=== PATIENT | male | born 1980 | race Caucasian/White ===

== ENCOUNTER 2023-06-06 10:59 | Emergency (ER) | payer MEDICAID ==
[~2023-06-06] VITALS: Ht 185.4 cm; Wt 92.2 kg
[2023-06-06 11:29] VITALS: BP 129/84; PULSE 63; RESP 18; TEMP 98.3; O2SAT 97
[2023-06-06] MEDS ORDERED: TETanus/Pertussis (Acell)/Diphther VAC/PF (Tdap-Adult) 0.5ml syringe IMVAC ONE (12:30)
[2023-06-06] MEDS ORDERED: CEPH-585 PO (12:46)
== END 2023-06-06 12:53 | disposition home or self-care (01) ==
LOC: ER 11:01
DX: S91.331A Puncture wound without foreign body, right foot, initial encounter (principal); Z79.2 Long term (current) use of antibiotics; X58.XXXA Exposure to other specified factors, initial encounter; Y93.89 Activity, other specified; Y92.89 Other specified places as the place of occurrence of the external cause; Y99.8 Other external cause status
CPT/HCPCS: 90471; 90715; 99283

== ENCOUNTER 2023-07-17 14:15 | Emergency (ER) | payer MEDICAID ==
[~2023-07-17] VITALS: Ht 185.4 cm; Wt 113.6 kg
[~2023-07-17 14:15] MED LIST: CEPH-585 PO
[2023-07-17 16:17] VITALS: TEMP 98.9
[2023-07-17 22:21] VITALS: BP 120/82; PULSE 74; RESP 18; O2SAT 97
[2023-07-17] MEDS ORDERED: gabapentin 400mg capsule PO SCH (22:30)
[2023-07-17] MEDS ORDERED: gabapentin 100mg capsule PO ONE (22:30)
[2023-07-17 22:55] LABS: BASOPHILS % (AUTO) 0.3 % (0-1); EOSINOPHILS # (AUTO) 0.4 X10'3 (0-0.9); EOSINOPHILS % (AUTO) 4.6 % (0-6); HEMATOCRIT 41.6 % (42.0-52.0); HEMOGLOBIN 14.2 g/dl (14.0-17.9); LYMPHOCYTES # (AUTO) 1.5 X10'3 (1.1-4.8); LYMPHOCYTES % (AUTO) 16.1 % (21-51); MEAN CORPUSCULAR HEMOGLOBIN 30.3 PG (27.0-31.0); MEAN CORPUSCULAR VOLUME 89.1 FL (78-98); MEAN PLATELET VOLUME 8.1 FL (7.4-10.4); MONOCYTES % (AUTO) 11.3 % (2-12); NEUTROPHILS # (AUTO) 6.3 X10'3 (1.8-7.7); NEUTROPHILS % (AUTO) 67.7 % (42-75); PLATELET COUNT 273 X10'3 (140-440); RED BLOOD COUNT 4.67 X10'6 (4.70-6.10); RED CELL DISTRIBUTION WIDTH 13.7 % (11.5-14.5); WHITE BLOOD COUNT 9.3 X10'3 (4.5-11.0)
[2023-07-17 23:08] LABS: ALANINE AMINOTRANSFERASE 119 U/L (12-78); ALBUMIN 3.8 G/DL (3.4-5.0); ALKALINE PHOSPHATASE 82 IU/L (46-116); ANION GAP 8 (8-16); ASPARTATE AMINO TRANSFERASE 80 U/L (10-37); BILIRUBIN,TOTAL 1.5 MG/DL (0.1-1.0); BLOOD UREA NITROGEN 11 MG/DL (7-18); BUN/CREATININE RATIO 11.1 (10.0-20.0); CALCIUM 8.9 MG/DL (8.5-10.1); CHLORIDE 99 MMOL/L (99-107); CREATININE 0.99 MG/DL (0.60-1.10); GLUCOSE 111 MG/DL (70-104); SODIUM 136 MMOL/L (135-145); TOTAL CARBON DIOXIDE 28.8 MMOL/L (24-32); TOTAL PROTEIN 7.5 G/DL (6.4-8.2); eCRCL 108 ML/MIN; eGFR 82 ML/MIN
[2023-07-17 23:10] LABS: C-REACTIVE PROTEIN 3.06 MG/DL (0.0-0.5)
[2023-07-17 23:27] LABS: URIC ACID 6.7 MG/DL (3.5-7.2)
[2023-07-17] MEDS ORDERED: GABA-530 PO (23:39)
== END 2023-07-17 23:56 | disposition home or self-care (01) ==
LOC: ER 14:15
DX: G62.1 Alcoholic polyneuropathy (principal); K76.9 Liver disease, unspecified; F17.200 Nicotine dependence, unspecified, uncomplicated; Z79.2 Long term (current) use of antibiotics; Z79.899 Other long term (current) drug therapy
CPT/HCPCS: 36415; 80053; 84550; 85025; 86140; 99283

== ENCOUNTER 2023-08-11 08:40 | Emergency (ER) | payer MEDICAID ==
[~2023-08-11] VITALS: Ht 185.4 cm; Wt 110.0 kg
[~2023-08-11 08:40] MED LIST changes: +GABA-530 PO
[2023-08-11 09:00] VITALS: BP 108/73; PULSE 86; RESP 16; TEMP 98; O2SAT 98
== END 2023-08-11 15:38 | disposition left against medical advice (07) ==
LOC: ER 08:41
DX: M79.605 Pain in left leg (principal); Z53.21 Procedure and treatment not carried out due to patient leaving prior to being seen by health care provider
CPT/HCPCS: 99281